=== PATIENT | male | born 1975 | race Caucasian/White ===

== ENCOUNTER → 2023-09-05 | Outpatient (CLI) | payer MEDICAID ==
--- NOTE | 2023-09-05 17:18 | CT ---
EXAMINATION TYPE: CT sinus wo con DATE OF EXAM: 09/05/2023 COMPARISON: None HISTORY: 48-year-old male J32.0, chronic maxillary sinusitis CT DLP: 480.8 mGycm Automated exposure control for dose reduction was used. TECHNIQUE: Noncontrast axial views of the paranasal sinuses were obtained. Coronal and sagittal recon structions performed. FINDINGS: PARANASAL SINUSES: Moderate to severe mucosal thickening throughout the ethmoid air cells. Moderate within the floor of the right frontal sinus. Additional mild to moderate mucosal thickening along the floors of the maxillary sinuses and sphenoid sinuses. There is no air-fluid level. Reactive gauri- osteogenesis is not seen. There is no destruction of the osseous jesus of the paranasal sinuses. THE NASAL CAVITY: The osteomeatal complexes are patent. The nasal septum is not deviated. Left-sided conchal bullosa. The imaged brain and orbits are normal in appearance. Mastoid air cells and middle ear cavities are well pneumatized. Reformatted images confirm above findings. IMPRESSION: Moderate chronic pansinus disease, greatest in the ethmoid air cells. Left-sided conchal bullosa.
== END | disposition home or self-care (01) ==
LOC: RADCTMAIN 16:50
PROVIDERS: ATTEND Otolaryngology
DX: J32.4 Chronic pansinusitis (principal)
CPT/HCPCS: 70486

== ENCOUNTER 2023-10-31 07:30 | Day surgery (SDC) | payer MEDICAID ==
[2023-10-30 08:55] VITALS: BMI 31.9
[~2023-10-31 07:30] MED LIST: HYDROmorphone 0.5 MG/0.5 ML SYRINGE IVP PRN
[2023-10-31] MEDS: LIDOCAINE 1% (10MG/ML) FOR IV START INTRADERMA PRN (08:10)
[2023-10-31] MEDS: LACTATED RINGERS 1,000 ML IV SCH (08:10)
[2023-10-31 08:11] VITALS: RESP 16
[2023-10-31] MEDS: OXYMETAZOLINE 0.05% NASL SPRAY 1 SPRAY BOTTLE EA NOSTRIL PRN (08:12)
[2023-10-31] MEDS: ONDANSETRON 4 MG/2 ML VIAL IVP PRN (08:20)
[2023-10-31] MEDS: DEXAMETHASONE SOD PHOSPHATE 4 MG/ML 1 ML VIAL IV ONE (08:20)
[2023-10-31] MEDS: FAMOTIDINE 20 MG/2 ML VIAL IV PRN (08:20)
[2023-10-31] MEDS ORDERED: fentaNYL (PF) 50 MCG/ML 2 ML AMP ONE (08:55)
[2023-10-31] MEDS ORDERED: HYDROmorphone (PF) 1 MG/ML ONE (08:55)
[2023-10-31] MEDS ORDERED: SUCCINYLCHOLINE CHLORIDE 200 MG/10 ML VIAL IV ONE (08:55)
[2023-10-31] MEDS ORDERED: LIDOCAINE 1% INJ 10MG/ML (20 ML MDV) ONE (08:55)
[2023-10-31] MEDS ORDERED: MIDAZOLAM 2 MG/2 ML VIAL ONE (08:55)
[2023-10-31] MEDS ORDERED: KETOROLAC 15 MG/ML 1 ML VIAL ONE (08:55)
[2023-10-31] MEDS ORDERED: PROPOFOL 10 MG/ML 20 ML VIAL IV ONE (08:55)
[2023-10-31] MEDS: LIDOCAINE 2%-EPI 1:100,000 20 ML VIAL SUBMUCOSAL ONE (09:14)
[2023-10-31] MEDS: BACITRACIN ZINC 500 UNIT/GM OINT 28.4 GM TUBE TOPICAL ONE ×2 (09:23→09:59)
[2023-10-31] MEDS: LACTATED RINGERS 1,000 ML IV ONE (10:05)
--- NOTE | 2023-10-31 10:18 | P.OP ---
Date of Procedure: 10/31/23 Preoperative Diagnosis: deviated nasal septum Inferior turbinate hypertrophy Chronic sinusitis Postoperative Diagnosis: same Procedure(s) Performed: septoplasty Outfracture and submucous resection of the inferior turbinates Bilateral endoscopic sinus surgery including bilateral maxillary antrostomy with removal of tissue from maxillary sinuses, bilateral anterior and posterior ethmoidectomy, bilateral sphenoidotomy with exploration and removal of tissue, left yaneth bullectomy Anesthesia: ALBER Surgeon: Jose Mora Estimated Blood Loss (ml): 10 Pathology: other (nasal septal bone and cartilage sinus contents) Condition: stable Disposition: PACU Indications for Procedure: this 48-year-old white male with difficulties with chronic nasal airway obstruction and postnasal drainage and recurrent/chronic sinusitis with CT evidence of chronic sinusitis also Operative Findings: This is a 70 in the left the inferior turbinates are hypertrophied bilaterally. There is mucosal thickening and polyps in the maxillary sinuses ,mucosal thickening throughout the ethmoid sinuses as well as mild thickening and small polyps and mucosal thickening in the sphenoid sinuses, left yaneth bullosa cell Description of Procedure: The patient was brought into the operative suite and placed in a supine position. The patient underwent induction of general anesthesia with oral endotracheal intubation without difficulty. The patient was prepped and draped in the usual aseptic fashion with the orbits in the operating field for monitoring to the case and the computed tomography scan was on the computer screen for review throughout the case. 1% lidocaine with 1 :100,000 epinephrine was infused submucosally into both sides of the nasal septum as well as the lateral nasal wall and anterior tips of the middle turbinates. While this was taking vasoconstrictive effect the inferior turbinates were infractured with Robertson elevator and partial submucous resection of the inferior turbinates was performed with a portion of the submucosal soft tissue and the inferior turbinate bone removed with Coblation device. The inferior turbinates were then outfractured with the Robertson elevator. A left hemitransfixion incision was then made with the mucoperichondrial and mucoperiosteal flap on the left elevated. The bony cartilaginous junction was disarticulated and the mucoperiosteal flap on the right was elevated. Bony nasal septal deformities were removed with Jose Roberto forceps and an inferior cartilaginous strip was removed leaving a full 1.5 cm caudal strut. Checking intranasally this corrected the nasoseptal deformities and the hemitransfixion incision was closed with a running 4-0 chromic suture. Full 0 endoscopic examination is performed bilaterally. Beginning on the left, the middle turbinate was medialized. The maxillary ostium was located with a ballpoint probe and an infundibulotomy was performed followed by uncinectomy. The maxillary antrostomy was enlarged at the expense of the anterior and posterior fontanelle taking care anteriorly not to injure the lacrimal bone. The maxillary sinus was evaluated with 30 and 70 endoscope .[Abnormal appearing tissue was removed from the maxillary sinus]. Anterior and posterior ethmoidectomy were then performed from anterior to posterior to the level of the skull base. The roof of the anterior ethmoid air cells were then cleaned from posterior to anterior using up-biting Blakesley forceps the sphenoid sinus was then opened at its ostium with straight suction and straight Blakesley forcep and explored. Small polyps were removed with Blakesley forceps. The sphenoid sinus was then explored with 0 endoscope.[Abnormal tissue was removed from the sphenoid sinus]. There was a left yaneth bullosa cell and the lateral one half of this was removed with microdebrider does performing the yaneth bullectomy. Attention was then turned to the right where the procedures were followed as they had been on the left including left maxillary antrostomy with removal of tissue maxillary sinus left anterior posterior ethmoidectomy, left sphenoidotomy with exploration and removal of tissue.. [Nasopore nasal dressing was placed in the middle meatus bilaterally under d irect visualization]. Bilateral Pedroza airway splints coated with bacitracin ointment were placed and sutured transseptally with a 4-0 nylon suture. The patient was suctioned in oral gastric fashion and was allowed to emerge from general anesthesia having tolerated procedure well and was extubated in the operating suite and transferred to the postoperative recovery area in satisfactory condition.
[2023-10-31 11:01] VITALS: TEMP 98.1
[2023-10-31 11:43] VITALS: BP 122/80; PULSE 86
== END 2023-10-31 11:42 | disposition home or self-care (01) ==
LOC: OR 07:30
PROVIDERS: ATTEND Otolaryngology
DX: J34.2 Deviated nasal septum (principal); J34.3 Hypertrophy of nasal turbinates; J32.9 Chronic sinusitis, unspecified; F10.90 Alcohol use, unspecified, uncomplicated
CPT/HCPCS: 30520; 31267; 31259; 31240; J2250; J0330; J1100; J0690; J2405; J2001; J3010; J3490; J1170; J1885; J2704; 88300; 88305